=== PATIENT | female | born 1940 | race Caucasian/White ===

== ENCOUNTER 2017-10-13 17:52 | Observation (INO) ==
[2017-10-13] MEDS ORDERED: Ondansetron 4 MG/2 ML VIAL IVP ONE (18:17)
[2017-10-13] MEDS ORDERED: 0.9 % Sodium Chloride 1,000 ML IVC ONE ×2 (18:17→19:22)
[2017-10-13 19:00] LABS: Bilirubin,Urine Small (Negative); Blood,Urine Negative (Negative); Clarity,Urine Cloudy (Clear); Color,Urine Yellow (Yellow); Glucose,Urine (UA) Normal (Normal); Ketones,Urine Negative (Negative); Leukocyte Esterase,Urine Small (Negative); Nitrite,Urine Negative (Negative); PH,Urine 5.5 pH Units (5.0-8.0); Protein,Urine 30 mg/dL (Neg-Trace); Specific Gravity,Urine 1.025 (1.010-1.025); Urobilinogen,Urine Normal (Normal)
[2017-10-13 19:01] LABS: Bacteria,Urine Moderate per hpf (None-Few); Squamous Epithelial Cell,Urine Many per lpf (None-Few); WBC,Urine TNTC per hpf (0-3)
[2017-10-13 19:04] LABS: Basophils # 0.1 K/mcL (0.0-0.2); Basophils % 0.3 %; Eosinophils % 0.1 %; Hematocrit 38.6 % (35.3-44.9); Hemoglobin 11.2 g/dL (11.5-15.4); Immature Granulocytes % 0.4 % (0-4); Lymphocytes # 0.9 K/mcL (0.6-4.6); Lymphocytes % 6.5 %; Mean Corpuscular Hemoglobin 22.6 pg (28.0-33.3); Mean Platelet Volume 9.6 fL (9.4-12.4); Monocytes # 1.1 K/mcL (0.0-1.3); Monocytes % 7.5 %; Neutrophils # 12.3 K/mcL (1.6-8.9); Platelet Count 258 K/mcL (140-400); Red Blood Count 4.95 M/mcL (3.82-4.97); Segmented Neutrophils % 85.2 %
[2017-10-13 19:11] LABS: Prothrombin Time 11.2 Seconds (9.4-12.1)
[2017-10-13 19:13] LABS: Hyaline Casts,Urine Few per lpf (None-Few)
[2017-10-13 19:14] LABS: Activated Partial Thrombo Time 27.8 Seconds (26.0-36.0)
--- NOTE | 2017-10-13 19:17 | Emergency Department Note ---
Disposition Clinical Impression: Elevated troponin Atrial fibrillation Qualifiers: Atrial fibrillation type: unspecified Qualified Code(s): I48.91 - Unspecified atrial fibrillation Vomiting Qualifiers: Vomiting type: unspecified Vomiting Intractability: non-intractable Nausea presence: unspecified Qualified Code(s): R11.10 - Vomiting, unspecified Disposition: Admitted As Inpatient Condition: Fair Forms: ED Satisfaction Letter Time of Disposition: 20:34 Nausea/Vomiting/Diarrhea HPI - General Chief complaint: ED Nausea/Vomiting/Diarrhea Stated complaint: Vomiting Time Seen by Provider: 10/13/17 18:07 Source: patient Mode of arrival: ambulatory Limitations: no limitations Nursing Notes Reviewed: Yes Vital Signs Reviewed: Yes - History of Present Illness HPI Narrative: 77-year-old female presents to the emergency department complaining of vomiting. Patient does have history of triple bypass as well as a stent placed approximately 2 years ago. Patient says this came on all of a sudden. Signed chest pain or abdominal pain. Patient states that she has allergies having a fast heart rate. Says that she has been told she has a fast heart rate normally she is takes metoprolol and that we will lower in that she has fine. Patient is currently on Plavix. Patient states is been no falls no recent travel outside the country and no diarrhea. Patient says she did take her Lasix and feels like she has to urinate. Otherwise there is no complaints including no headaches, blurry vision, neck pain, back pain, chest pain, shortness of breath, abdominal pain, fevers, chills, changes in bowel movement, pain with urination, generalized weakness. She did mention that she is having mild burning while she peas. She could says that this could be causing her symptoms. - Related Data Home Medications Medication Instructions Recorded Confirmed Clopidogrel Bisulfate [Plavix] 75 mg PO DAILY MDD on hold 07/20/16 02/25/17 HYDROcodone/Acet 5/325 mg [[place] 1 tab PO TID 07/20/16 02/25/17 5-325 mg] Metoprolol [Lopressor] 100 mg PO BID 07/20/16 02/25/17 Atorvastatin Calcium [Lipitor] 80 mg PO HS 02/25/17 02/25/17 Levothyroxine [Synthroid] 250 mcg PO 0630 02/25/17 02/25/17 Nitroglycerin [Nitrostat] 0.4 mg SL Q5M PRN 02/25/17 02/25/17 Albuterol Sulfate [Ventolin Hfa] 2 puff IH Q4H PRN 10/13/17 10/13/17 Ferrous Sulfate 325 mg PO DAILY 10/13/17 10/13/17 Fluticasone Propionate Nasal 50 mcg NS DAILY PRN 10/13/17 10/13/17 [Flonase] Furosemide [Lasix] 20 mg PO DAILY 10/13/17 10/13/17 Loratadine [Claritin] 10 mg PO DAILY PRN 10/13/17 10/13/17 Losartan/Hydrochlorothiazide 1 each PO DAILY 10/13/17 10/13/17 [Hyzaar 100-12.5 Tablet] Omeprazole [PriLOSEC] 40 mg PO DAILY 10/13/17 10/13/17 Tiotropium [place] [Spiriva 2 spray IH DAILY 10/13/17 10/13/17 Respimat] clonazePAM [Klonopin] 0.5 mg PO TID 10/13/17 10/13/17 Allergies Allergy/AdvReac Type Severity Reaction Status Date / Time clarithromycin [From Biaxin] AdvReac Nausea Verified 03/06/17 08:59 Review of Systems: 10 point review of systems done and negative unless otherwise stated in the history of present illness. All systems ED: reviewed and negative except as stated. Review of Systems: As Per HPI Past Medical History - Past Medical History Attestation: Yes The following information was validated with the patient. Source: patient Medical history: Reports: COPD, coronary artery disease, GERD, hypertension, thyroid disease, other Surgical history: Reports: appendectomy, cholecystectomy, coronary bypass (CABG) , hip replacement Psychiatric history: Reports: no psych history - Social History Smoking Status: Never smoker Smokeless Tobacco Status: No Alcohol use: Reports: none Drug use: Reports: none Physical Exam - General Limitations: no limitations General appearance: alert, in no apparent distress - Head Head exam: atraumatic, normocephalic, normal inspection - Eye Eye exam: Present: normal appearance, PERRL, EOMI - ENT ENT exam: normal exam, normal oropharynx, mucous membranes moist - Neck Neck exam: Present: normal inspection, full ROM, trachea midline - Chest Chest inspection: Present: normal inspection, symmetric chest wall rise - Respiratory Respiratory exam: Present: normal lung sounds bilaterally - Cardiovascular Cardiovascular exam: Present: normal rhythm, tachycardia, normal heart sounds - Abdominal Exam Abdominal exam: Present: soft, Non-Tender. Absent: tenderness, distention, guarding, rebound, rigidity - Extremities Exam Extremities exam: Present: normal inspection, full ROM. Absent: tenderness, pedal edema - Expanded Lower Extremity Exam Neurovascular/Tendon exam: Absent: motor deficit, sensory deficit, tendon deficit - Back Exam Back exam: Present: normal inspection, full ROM. Absent: tenderness, CVA tenderness (R), CVA tenderness (L) - Neurological Exam Neurological exam: Present: alert, oriented X3 - Skin Skin exam: Present: warm, dry, intact, normal color Course Course Narrative: 77-year-old female presents to the emergency department complaining of vomiting. On exam she does have A. fib. Patient states this is new for her and this is new compared with old EKG. We will do a broad workup on this patient including CBC, BMP, lactate, lipase, urinalysis, EKG, chest x-ray. Will give patient 15 mg diltiazem push to help with her atrial fibrillation. Patient currently has no fever. No need for antipyretics. We will give patient IV fluids. Most likely disposition will be admission. - Reevaluation(s) Reevaluation #1: She reevaluated after diltiazem her heart rate went down to 90 Will get a repeat EKG patient has gotten one bag of IV fluids. Also given Zofran for nausea. This is helped the nausea. Patient is now a little more tachycardic so we will start the diltiazem drip. Patient also had an elevated troponin of 0.07 so we will give patient aspirin this could be due to demand ischemia's will hold off giving low-dose ACS heparin. We will also start Rocephin due to patient most likely having UTI. Time: 19:26 - Consultations Consultation #1: Spoke with on-call cardiology, Dr. Gill explained the case to him. Due to elevated troponin as well as EKG changes he recommended we do do low-dose heparin which was started on the patient. They had no further recommendations at this time. Vital Signs Temperature 97.5 F L 10/13/17 17:55 Pulse Rate 134 10/13/17 17:55 Respiratory Rate 20 10/13/17 17:55 Blood Pressure 169/87 10/13/17 17:55 O2 Sat by Pulse Oximetry 98 10/13/17 17:55 Temperature 97.5 F L 10/13/17 17:55 Pulse Rate 93 10/13/17 20:13 Respiratory Rate 20 10/13/17 20:13 Blood Pressure 187/111 10/13/17 20:13 O2 Sat by Pulse Oximetry 98 10/13/17 17:55 Oxygen Delivery Oxygen Delivery Room Air Nausea/Vomiting/Diarrhea - [facility] Narrative Medical decision making narrative: 77-year-old female presents to the emergency department with vomiting. Did give her Zofran as well as IV fluids for that. To get chest x-ray which came back normal. Labs came back with an elevated troponin of 0.07. Due to her cardiac history as well as EKG changes having ST depression we started low-dose heparin. This was done with consult with cardiology where spoke with Dr. Gill. Patient also had urinary tract infection and started Rocephin on her. When she was in this new onset A. fib we did give 15 mg bolus of diltiazem. Impression responded well with that back to sinus. Repeat EKG was done. We decided to start a diltiazem drip due to patient still being tachycardic. Patient tolerated all this well. Bit due to the new onset atrial fibrillation we decided to admit the patient for further evaluation. Patient is admitted to Dr. Wilkinson the hospitalist who agreed to accept the patient. Patient is admitted in stable condition. Chest X-Ray 10/13/17 18:21 IMPRESSION: Low lung volume study without definite acute consolidation. Suggestive of a large hiatal hernia. Calcified granulomas. D/ / 10/13/2017 18:44:48 Ke aTte MD / bcarter Interpreting Provider: Ke Tate MD - Medical Records Medical records reviewed: Yes I reviewed the patient's medical records. - Lab Data Lab results reviewed: Yes I reviewed the patient's lab results. Result diagrams: 10/13/17 18:49 10/13/17 18:49 Lab Results 10/13/17 10/13/17 10/13/17 Range/Units 18:40 18:49 18:49 WBC 14.5 H (4.3-11.1) K/mcL RBC 4.95 (3.82-4.97) M/mcL Hgb 11.2 L (11.5-15.4) g/dL Hct 38.6 (35.3-44.9) % MCV 78.0 L (83.0-100.0) fL MCH 22.6 L (28.0-33.3) pg MCHC 29.0 L (31.6-35.5) g/dL RDW 20.0 H (11.5-14.5) % Plt Count 258 (140-400) K/mcL MPV 9.6 (9.4-12.4) fL Immature Gran % 0.4 (0-4) % Seg Neutrophils % 85.2 % Lymphocytes % 6.5 % Monocytes % 7.5 % Eosinophils % 0.1 % Basophils % 0.3 % Neutrophils # 12.3 H (1.6-8.9) K/mcL Lymphocytes # 0.9 (0.6-4.6) K/mcL Monocytes # 1.1 (0.0-1.3) K/mcL Eosinophils # 0.0 (0.0-0.6) K/mcL Basophils # 0.1 (0.0-0.2) K/mcL PT (9.4-12.1) Seconds INR APTT (26.0-36.0) Seconds Sodium 136 (136-145) mEq/L Potassium 3.2 L (3.5-5.1) mEq/L Chloride 102 (98-107) mEq/L Carbon Dioxide 25 (23-29) mEq/L BUN 17 (8-23) mg/dL Creatinine 0.76 (0.60-1.20) mg/dL Est GFR ( Amer) > 60 (> 60) Est GFR (Non-Af Amer) > 60 (> 60) BUN/Creatinine Ratio 22 (6-26) Glucose 129 H (70-105) mg/dL Calculated Osmolality 285 (280-300) Lactic Acid (0.5-2.2) mmol/L Calcium 9.3 (8.6-10.3) mg/dL Total Bilirubin 0.4 (0.3-1.0) mg/dL AST 18 (13-39) Units/L ALT 9 (7-52) Units/L Alkaline Phosphatase 60 (34-104) Units/L Troponin I (< 0.04) ng/mL Serum Total Protein 7.4 (6.4-8.9) g/dL Albumin 4.3 (3.5-5.7) g/dL Globulin 3.1 (2.4-3.5) g/dL Albumin/Globulin Ratio 1.4 (1.1-2.2) Lipase 50 (11-82) Units/L Urine Color Yellow (Yellow) Urine Clarity Cloudy A (Clear) Urine pH 5.5 (5.0-8.0) pH Units Ur Specific [place] 1.025 (1.010-1.025) Urine Protein 30 H (Neg-Trace) mg/dL Urine Glucose (UA) Normal (Normal) mg/dL Urine Ketones Negative (Negative) mg/dL Urine Blood Negative (Negative) Urine Nitrite Negative (Negative) Urine Bilirubin Small H (Negative) Urine Urobilinogen Normal (Normal) mg/dL Ur Leukocyte Esterase Small H (Negative) Urine Microscopic RBC 3-5 H (0-3) per hpf Urine Microscopic WBC TNTC H (0-3) per hpf Ur Squamous Epith Cells Many H (None-Few) per lpf Urine Bacteria Moderate H (None-Few) per hpf Hyaline Casts Few (None-Few) per lpf Ur Culture Indicated? NO. (NO) 10/13/17 10/13/17 10/13/17 Range/Units 18:49 18:49 18:49 WBC (4.3-11.1) K/mcL RBC (3.82-4.97) M/mcL Hgb (11.5-15.4) g/dL Hct (35.3-44.9) % MCV (83.0-100.0) fL MCH (28.0-33.3) pg MCHC (31.6-35.5) g/dL RDW (11.5-14.5) % Plt Count (140-400) K/mcL MPV (9.4-12.4) fL Immature Gran % (0-4) % Seg Neutrophils % % Lymphocytes % % Monocytes % % Eosinophils % % Basophils % % Neutrophils # (1.6-8.9) K/mcL Lymphocytes # (0.6-4.6) K/mcL Monocytes # (0.0-1.3) K/mcL Eosinophils # (0.0-0.6) K/mcL Basophils # (0.0-0.2) K/mcL PT 11.2 (9.4-12.1) Seconds INR 1.0 APTT 27.8 (26.0-36.0) Seconds Sodium (136-145) mEq/L Potassium (3.5-5.1) mEq/L Chloride (98-107) mEq/L Carbon Dioxide (23-29) mEq/L BUN (8-23) mg/dL Creatinine (0.60-1.20) mg/dL Est GFR ( Amer) (> 60) Est GFR (Non-Af Amer) (> 60) BUN/Creatinine Ratio (6-26) Glucose (70-105) mg/dL Calculated Osmolality (280-300) Lactic Acid 2.1 (0.5-2.2) mmol/L Calcium (8.6-10.3) mg/dL Total Bilirubin (0.3-1.0) mg/dL AST (13-39) Units/L ALT (7-52) Units/L Alkaline Phosphatase (34-104) Units/L Troponin I 0.07 H* (< 0.04) ng/mL Serum Total Protein (6.4-8.9) g/dL Albumin (3.5-5.7) g/dL Globulin (2.4-3.5) g/dL Albumin/Globulin Ratio (1.1-2.2) Lipase (11-82) Units/L Urine Color (Yellow) Urine Clarity (Clear) Urine pH (5.0-8.0) pH Units Ur Specific [place] (1.010-1.025) Urine Protein (Neg-Trace) mg/dL Urine Glucose (UA) (Normal) mg/dL Urine Ketones (Negative) mg/dL Urine Blood (Negative) Urine Nitrite (Negative) Urine Bilirubin (Negative) Urine Urobilinogen (Normal) mg/dL Ur Leukocyte Esterase (Negative) Urine Microscopic RBC (0-3) per hpf Urine Microscopic WBC (0-3) per hpf Ur Squamous Epith Cells (None-Few) per lpf Urine Bacteria (None-Few) per hpf Hyaline Casts (None-Few) per lpf Ur Culture Indicated? (NO) - Radiology Data Radiology results reviewed: Yes I reviewed the patient's radiology results. - EKG Data EKG attestation: Yes I reviewed and interpreted this EKG. EKG results narrative: EKG #1 done at 1800 reviewed by myself and the attending showing A. fib with RVR with a right bundle branch at a rate of 140, QRS 129, QTC 414 with a leftward axis. There is ST depression in leads V1 and V2 and V3 and V4. No other acute T-wave abnormalities nor signs of ischemia. No signs of heart strain hypertrophy or heart block. This has been reviewed and besides forgot her syndrome. Compared with old EKG done 02/25/17 shows no atrial fibrillation but does show a right bundle-branch block. There is no ST depression in that EKG as well. EKG #2 done at 1935 after diltiazem bolus. Shows sinus rhythm with first- degree AV block at a rate of 99, DE interval 238, QRS 133, QTC 424 with a leftward axis. There is still a right bundle branch block there still ST depression in V1 and V2. No signs of heart strain hypertrophy or other heart blocks.
[2017-10-13 19:22] LABS: Alanine Aminotransferase 9 Units/L (7-52); Albumin 4.3 g/dL (3.5-5.7); Albumin/Globulin Ratio 1.4 (1.1-2.2); Alkaline Phosphatase 60 Units/L (34-104); Aspartate Amino Transferase 18 Units/L (13-39); BUN/Creatinine Ratio 22 (6-26); Bilirubin,Total 0.4 mg/dL (0.3-1.0); Blood Urea Nitrogen 17 mg/dL (8-23); Calcium 9.3 mg/dL (8.6-10.3); Carbon Dioxide 25 mEq/L (23-29); Chloride 102 mEq/L (98-107); Globulin 3.1 g/dL (2.4-3.5); Glucose 129 mg/dL (70-105); Lipase 50 Units/L (11-82); Osmolality,Calculated 285 (280-300); Potassium 3.2 mEq/L (3.5-5.1); Sodium 136 mEq/L (136-145); Total Protein 7.4 g/dL (6.4-8.9); eGFR For African Americans > 60 (> 60); eGFR For Non-African Americans > 60 (> 60)
[2017-10-13] MEDS ORDERED: Aspirin 81 MG TAB.CHEW PO ONE (19:24)
--- NOTE | 2017-10-13 19:25 | Emergency Department Note ---
START Narrative - START START: I examined this patient and my medical decision-making was reviewed with the Resident Physician. I agree with the documented findings, disposition and treatment plan as described except to the extent set forth below. 77 year old female wiht complaints of nausea and vomtiting and bruning on urination and states taht this feels simlir to her UTIS in the past but she is also in new onset atrial fibrillation with rate of 140s and has a histroyf of triple vesself CABG. Ua confirims UTI and we have given cardizem push dose and has demetra down to 90s and hold on the drip. PAtient is fluid repsonive as well and has been treated with Rocephin. troponin is positive and we will treat with ASA. admit to medicine
[2017-10-13] MEDS ORDERED: *HR* Heparin 5,000 UNIT/ML VIAL IVP ONE (20:03)
[2017-10-13] MEDS ORDERED: Heparin 25,000 UNIT/500 ML D5W 25,000 UNIT/500 ML BAG IVC SCH (20:15)
[2017-10-13] MEDS ORDERED: *HR* Heparin 5,000 UNIT/ML VIAL IVP PRN ×2 (21:46)
[2017-10-13] MEDS ORDERED: Naloxone 0.4 MG/ML INJ IVP PRN (23:47)
[2017-10-13] MEDS ORDERED: Ondansetron 4 MG/2 ML VIAL IVP PRN (23:50)
[2017-10-13] MEDS ORDERED: Loratadine 10 MG TABLET PO PRN (23:51)
[2017-10-13] MEDS ORDERED: Fluticasone Propionate Nasal 50 MCG/SPRAY BOTTLE NS PRN (23:51)
[2017-10-13] MEDS ORDERED: Nitroglycerin 0.4 MG TAB.SUBL SL PRN (23:51)
[2017-10-13] MEDS ORDERED: *HR* HYDROcodone/Acet 5/325 mg TABLET PO PRN (23:51)
--- NOTE | 2017-10-14 00:25 | Internal Med History&Physical ---
Date of Encounter: 10/13/17 Time of Encounter: 23:00 Assessment and Plan (1) Atrial fibrillation with RVR Current visit: Yes Status: Acute Pt has no hx of A Fib. - Start cardizem drip. HR convert to NSR now. - Cont heparin drip for AC - Echo, Mg, TSH - Cardio consult (2) Leukocytosis Current visit: Yes Status: Acute Most likely reactive, f/u CBC in AM Qualifiers: Leukocytosis type: leukemoid reaction Qualified Code(s): D72.823 - Leukemoid reaction (3) Elevated troponin Current visit: Yes Status: Acute Most likely demand ischemia due to A Fib RVR, will cont cardiac monitoring and track 3 sets of troponin (4) DVT prophylaxis Current visit: No Status: Acute On heparin drip (5) CAD (coronary artery disease) Current visit: No Status: Chronic No chest pain. Cont home meds Qualifiers: Coronary Disease-Associated Artery/Lesion type: [place] artery [place] vs. transplanted heart: [place] heart Associated angina: angina presence unspecified Qualified Code(s): I25.10 - Atherosclerotic heart disease of [place] coronary artery without angina pectoris (6) HTN (hypertension) Current visit: No Status: Chronic Cont home meds. Monitor BP Qualifiers: Hypertension type: essential hypertension Qualified Code(s): I10 - Essential (primary) hypertension (7) Hypothyroid Current visit: No Status: Chronic Cont home meds Qualifiers: Hypothyroidism type: unspecified Qualified Code(s): E03.9 - Hypothyroidism , unspecified Internal Medicine - H&P: HPI Chief complaint: nausea and vomiting Admitted From: Home Plans for Post Hospital Care: Home History of present illness: Ms. Edgar is a 77 year old female with hx of CAD s/p CABG, PVD, HTN, Hiatal hernia, present to ER for nausea and vomiting started from today. Pt said vomiting is stomach content, no blood in it. Pt denies abd pain or diarrhea. She denies chest pain or SOB. In ER, EKG shows A Fib RVR. Pt has no hx of A Fib. She was given cardizem 15mg iv once plus cardizem drip. Her HR convert to sinus and nausea vomiting also resolved. Pt was started heparin drip and admitted for further management. Past Med Surg Social Fam HX - Past Medical History Medical history: COPD, coronary artery disease, GERD, hypertension, thyroid disease, other Psychiatric history: no psych history - Past Surgical History Surgical History: appendectomy, cholecystectomy, coronary bypass (CABG), hip replacement - Social History Smoking Status: Never smoker Smokeless Tobacco Status: No Alcohol use: none Drug use: none - Family History Mother Hx Family Cardiac Disorders: Yes Father Hx Family Neurologic Disorders: Yes (parkinson) Internal Medicine - H&P: Meds Clopidogrel Bisulfate [Plavix] 75 mg PO DAILY 07/20/16 [History] HYDROcodone/Acet 5/325 mg [[place] 5-325 mg] 1 tab PO TID PRN 07/20/16 [History] Metoprolol [Lopressor] 100 mg PO BID 07/20/16 [History] Atorvastatin Calcium [Lipitor] 80 mg PO HS 02/25/17 [History] Levothyroxine [Synthroid] 250 mcg PO 0630 02/25/17 [History] Nitroglycerin [Nitrostat] 0.4 mg SL Q5M PRN 02/25/17 [History] Albuterol Sulfate [Ventolin Hfa] 2 puff IH Q4H PRN 10/13/17 [History] Ferrous Sulfate 325 mg PO DAILY 10/13/17 [History] Fluticasone Propionate Nasal [Flonase] 50 mcg NS DAILY PRN 10/13/17 [History] Furosemide [Lasix] 20 mg PO DAILY 10/13/17 [History] Loratadine [Claritin] 10 mg PO DAILY PRN 10/13/17 [History] Losartan/Hydrochlorothiazide [Hyzaar 100-12.5 Tablet] 1 each PO DAILY 10/13/17 [ History] Omeprazole [PriLOSEC] 40 mg PO DAILY 10/13/17 [History] Tiotropium [place] [Spiriva Respimat] 2 spray IH DAILY 10/13/17 [History] clonazePAM [Klonopin] 0.5 mg PO TID 10/13/17 [History] 3 Allergy/AdvReac Type Severity Reaction Status Date / Time clarithromycin [From Biaxin] AdvReac Nausea Verified 03/06/17 08:59 All Systems PM: A 10-system review of systems was performed and is negative for pertinent findings except as documented above in the HPI. - Constitutional Vitals: Temp Pulse Resp BP Pulse Ox 97.6 F 94 17 129/86 93 10/13/17 23:53 10/13/17 23:53 10/13/17 23:53 10/13/17 23:53 10/13/17 23:53 General appearance: Present: A&O X 3, no acute distress, answers questions appropriately - Head Head exam: Present: atraumatic, normocephalic - Eye Eye exam: Present: PERRL, conjuntiva pink, sclera anicteric Pupils: Present: PERRL - Neck Neck exam general surgery: Present: supple, trachea midline. Absent: lymphadenopathy - Respiratory Respiratory exam: Present: CTAB. Absent: accessory muscle use, rales, rhonchi, wheezes - Cardiovascular Cardiovascular exam: Present: RRR, +S1, +S2. Absent: diastolic murmur, gallop, rubs, systolic murmur - GI/Abdominal GI/Abdominal exam: Present: normal bowel sounds, soft, no peritoneal signs. Absent: distended, tenderness - Extremities Exam Extremities exam: Present: warm, radial pulses palpable and symmetrical. Absent : calf tenderness, cyanotic, pedal edema - Neurological Exam Neurological exam: Present: CN II-XII intact, oriented X3, no focal deficits. Absent: pronater drift, facial droop, speech deficit - Skin Skin exam: Present: dry, intact Internal Med - H&P Results - Labs CBC & Chem 7: 10/13/17 18:49 10/13/17 18:49 - EKG Data -: EKG Interpreted by Myself (I degree AVB, RBBB) EKG shows normal: sinus rhythm Rate: normal
[2017-10-14 03:30] LABS: Basophils % 0.7 %; Eosinophils % 0.4 %; Hematocrit 31.2 % (35.3-44.9); Immature Granulocytes % 0.2 % (0-4); Lymphocytes % 17.8 %; Mean Corpuscular HGB Conc 29.5 g/dL (31.6-35.5); Mean Corpuscular Hemoglobin 22.8 pg (28.0-33.3); Mean Corpuscular Volume 77.4 fL (83.0-100.0); Mean Platelet Volume 9.7 fL (9.4-12.4); Monocytes # 0.5 K/mcL (0.0-1.3); Monocytes % 9.3 %; Neutrophils # 4.1 K/mcL (1.6-8.9); Platelet Count 194 K/mcL (140-400); Red Blood Count 4.03 M/mcL (3.82-4.97); Red Cell Distribution Width 19.5 % (11.5-14.5); Segmented Neutrophils % 71.6 %
[2017-10-14 03:34] LABS: Hemoglobin 9.2 g/dL (11.5-15.4)
[2017-10-14 04:01] LABS: Thyroid Stimulating Hormone 1.341 mcIU/mL (0.340-5.600)
[2017-10-14 04:06] LABS: Activated Partial Thrombo Time 130.5 Seconds (26.0-36.0)
[2017-10-14] MEDS: Heparin 25,000 UNIT/500 ML D5W 25,000 UNIT/500 ML BAG IVC SCH (04:08)
[2017-10-14 04:09] LABS: Heparin anti-factor XA UFH 0.84 IU/mL (0.30-0.70)
[2017-10-14 04:18] LABS: BUN/Creatinine Ratio 23 (6-26); Blood Urea Nitrogen 14 mg/dL (8-23); Calcium 8.4 mg/dL (8.6-10.3); Carbon Dioxide 26 mEq/L (23-29); Chloride 106 mEq/L (98-107); Glucose 108 mg/dL (70-105); Osmolality,Calculated 289 (280-300); Potassium 3.6 mEq/L (3.5-5.1); Sodium 139 mEq/L (136-145); eGFR For African Americans > 60 (> 60); eGFR For Non-African Americans > 60 (> 60)
[2017-10-14 05:00] LABS: Magnesium 1.6 mg/dL (1.6-2.6)
[2017-10-14] MEDS: Furosemide 20 MG TABLET PO SCH (10:14)
[2017-10-14] MEDS: clonazePAM 0.5 MG TABLET PO SCH ×3 (10:14→20:25)
[2017-10-14] MEDS: Metoprolol 100 MG TABLET PO SCH ×2 (10:14→20:25)
[2017-10-14] MEDS: hydroCHLOROthiazide 25 MG TABLET PO SCH (10:15)
[2017-10-14] MEDS: Tiotropium 18 MCG inhalation IH SCH (10:36)
--- NOTE | 2017-10-14 13:46 | Electrophysiology Consult Note ---
Date of Encounter: 10/14/17 Time of Encounter: 13:42 Assessment and Plan (1) Atrial fibrillation with RVR Current Visit: Yes Status: Acute AF with RVR, likely secondary to viral illness. Would recommend IV cardizem for rate control and converting to oral as she is now in NSR. Is currently on heparin drip, will need to be started on po anticoagulant on discharge. Discussion w patient/family: The assessment and plan as outlined above was discussed with the patient and/or family members who expressed understanding and agreement. All questions were answered. Thank you for involving us in the care of your patient. Please call with any questions. History of Present Illness Consult date: 10/14/17 Requesting physician: Dallin Church Consult reason: AF, RVR Chief complaint: N/V, plapitaions History of present illness: Ms. Edgar is a 77 year old female whith history of CAD presents with nausea and vomiting and was noted to be in AF. She does not have a history of AF. Past Med Surg Social Fam HX - Past Medical History Medical history: COPD, coronary artery disease, GERD, hypertension, thyroid disease, other Psychiatric history: no psych history - Past Surgical History Surgical History: appendectomy, cholecystectomy, coronary bypass (CABG), hip replacement - Social History Smoking Status: Never smoker Smokeless Tobacco Status: No Alcohol use: none Drug use: none - Family History Mother Hx Family Cardiac Disorders: Yes Father Hx Family Neurologic Disorders: Yes (parkinson) Medications and Allergies Clopidogrel Bisulfate [Plavix] 75 mg PO DAILY 07/20/16 [History] HYDROcodone/Acet 5/325 mg [[place] 5-325 mg] 1 tab PO TID PRN 07/20/16 [History] Metoprolol [Lopressor] 100 mg PO BID 07/20/16 [History] Atorvastatin Calcium [Lipitor] 80 mg PO HS 02/25/17 [History] Levothyroxine [Synthroid] 250 mcg PO 0630 02/25/17 [History] Nitroglycerin [Nitrostat] 0.4 mg SL Q5M PRN 02/25/17 [History] Albuterol Sulfate [Ventolin Hfa] 2 puff IH Q4H PRN 10/13/17 [History] Ferrous Sulfate 325 mg PO DAILY 10/13/17 [History] Fluticasone Propionate Nasal [Flonase] 50 mcg NS DAILY PRN 10/13/17 [History] Furosemide [Lasix] 20 mg PO DAILY 10/13/17 [History] Loratadine [Claritin] 10 mg PO DAILY PRN 10/13/17 [History] Losartan/Hydrochlorothiazide [Hyzaar 100-12.5 Tablet] 1 each PO DAILY 10/13/17 [ History] Omeprazole [PriLOSEC] 40 mg PO DAILY 10/13/17 [History] Tiotropium [place] [Spiriva Respimat] 2 spray IH DAILY 10/13/17 [History] clonazePAM [Klonopin] 0.5 mg PO TID 10/13/17 [History] 3 Allergy/AdvReac Type Severity Reaction Status Date / Time clarithromycin [From Biaxin] AdvReac Nausea Verified 03/06/17 08:59 All Systems Review: A 10-system review of systems was performed and is negative for pertinent findings except as documented above in the HPI. Physical Examination Vital Signs, Last 4 Hours Temp Pulse Resp BP Pulse Ox 10/14/17 10:26 98.0 F 95 14 140/65 94 General: Conversant, No Apparent Distress HEENT: Atraumatic, Normocephaly, Mucus Membranes Moist Neck: No JVD, Normal carotid pulses Cardiac: Reg Rate and Rhythm, Normal S1 and S2, No Murmur Lungs: Normal Breath Sounds, No Wheeze, Rales, Rhonchi Neuro: Alert and responsive, No focal deficits noted Abdomen: Soft, Non-Tender Skin: No rashes noted on visualized skin Musculoskeletal: No Chest Wall Tenderness Results 10/14/17 03:24 10/14/17 03:24 Lab Results 10/14/17 10/14/17 10/14/17 00:35 03:24 03:24 WBC 5.7 D Hgb 9.2 L D Hct 31.2 L Plt Count 194 APTT Sodium Potassium Chloride Carbon Dioxide BUN Creatinine Glucose Calcium Magnesium 1.6 Troponin I 0.11 H* TSH 1.341 10/14/17 10/14/17 10/14/17 03:24 03:24 07:01 WBC Hgb Hct Plt Count APTT 130.5 H* D Sodium 139 Potassium 3.6 Chloride 106 Carbon Dioxide 26 BUN 14 Creatinine 0.61 Glucose 108 H Calcium 8.4 L Magnesium Troponin I 0.08 H* TSH 10/14/17 11:21 WBC Hgb Hct Plt Count APTT 66.8 H Sodium Potassium Chloride Carbon Dioxide BUN Creatinine Glucose Calcium Magnesium Troponin I TSH - EKG Interpretation EKG results cardiology: personally reviewed (AF with RVR, RBBB) Consult Discharge Plan - Plan Referrals: Joshua Bateman MD [Primary Care Provider] -
--- NOTE | 2017-10-14 16:19 | Event Note ---
Date of Encounter: 10/14/17 Time of Encounter: 16:18 77/female Brief past medical history: Hypertension, hyperlipidemia, coronary artery disease, status post coronary artery bypass graft, Admitted with worsening vomiting likely secondary to viral illness. Noted that patient is in atrial fibrillation with a rapid ventricular rate. She is presently on Cardizem drip and this is a new onset A. fib hence from anticoagulant point of view she is receiving heparin. Elevated troponin is likely secondary to the demand ischemia. Cardiology is on the board and we will follow the recommendation.
[2017-10-15] MEDS: Heparin 25,000 UNIT/500 ML D5W 25,000 UNIT/500 ML BAG IVC SCH (02:59)
[2017-10-15 06:16] LABS: Basophils # 0.1 K/mcL (0.0-0.2); Basophils % 1.2 %; Eosinophils # 0.1 K/mcL (0.0-0.6); Eosinophils % 1.2 %; Hemoglobin 9.1 g/dL (11.5-15.4); Immature Granulocytes % 0.4 % (0-4); Lymphocytes # 1.4 K/mcL (0.6-4.6); Lymphocytes % 27.5 %; Mean Corpuscular HGB Conc 29.4 g/dL (31.6-35.5); Mean Corpuscular Hemoglobin 22.6 pg (28.0-33.3); Mean Corpuscular Volume 76.9 fL (83.0-100.0); Mean Platelet Volume 10.5 fL (9.4-12.4); Monocytes # 0.7 K/mcL (0.0-1.3); Monocytes % 12.6 %; Platelet Count 224 K/mcL (140-400); Red Blood Count 4.03 M/mcL (3.82-4.97); Red Cell Distribution Width 19.9 % (11.5-14.5); Segmented Neutrophils % 57.1 %
[2017-10-15 06:31] LABS: Alanine Aminotransferase 7 Units/L (7-52); Albumin 3.5 g/dL (3.5-5.7); Albumin/Globulin Ratio 1.4 (1.1-2.2); Alkaline Phosphatase 48 Units/L (34-104); Aspartate Amino Transferase 18 Units/L (13-39); BUN/Creatinine Ratio 14 (6-26); Bilirubin,Total 0.4 mg/dL (0.3-1.0); Blood Urea Nitrogen 11 mg/dL (8-23); Calcium 8.9 mg/dL (8.6-10.3); Carbon Dioxide 29 mEq/L (23-29); Chloride 103 mEq/L (98-107); Globulin 2.5 g/dL (2.4-3.5); Glucose 101 mg/dL (70-105); Osmolality,Calculated 290 (280-300); Sodium 140 mEq/L (136-145); eGFR For African Americans > 60 (> 60); eGFR For Non-African Americans > 60 (> 60)
[2017-10-15] MEDS: Tiotropium 18 MCG inhalation IH SCH (07:48)
[2017-10-15] MEDS: Diltiazem CD (24hr) 120 MG CAPSULE PO SCH (08:29)
[2017-10-15] MEDS: clonazePAM 0.5 MG TABLET PO SCH ×3 (08:29→20:13)
[2017-10-15] MEDS: hydroCHLOROthiazide 25 MG TABLET PO SCH (08:30)
[2017-10-15] MEDS: Furosemide 20 MG TABLET PO SCH (08:30)
[2017-10-15] MEDS: Metoprolol 100 MG TABLET PO SCH ×2 (08:30→20:13)
--- NOTE | 2017-10-15 16:07 | Internal Med Progress Note ---
Date of Encounter: 10/15/17 Time of Encounter: 16:03 - Assessment and plan (1) Atrial fibrillation with RVR Current Visit: Yes Status: Acute Assessment and plan: Patient admitted with atrial fibrillation with rapid ventricular rate. Presently heart rate is very well controlled. Ventricle are rate is between 90-110. Echocardiogram: 10/2017: EF 55%, mild left ventricular diastolic dysfunction, no major valvular abnormalities. Rate control: Cardizem extended release 120 mg daily, metoprolol 100 mg twice a day. Anticoagulation: Heparin drip. (2) Elevated troponin Current Visit: Yes Status: Acute Assessment and plan: Likely demand ischemia (3) Barretts esophagus Current Visit: No Status: Acute Assessment and plan: Patient has a history of a Head's esophagus. EGD: 07/2016: Barretts esophagus. Patient was hospitalized for history of a GI bleed in a month of July 2016. Patient underwent colonoscopy which revealed hyperplastic polyp. We need to discuss with patient at length regarding anticoagulation. Qualifiers: Head's esophagus type: with dysplasia of unspecified degree Qualified Code(s): K22.719 - Head's esophagus with dysplasia, unspecified; K22.71 - Head's esophagus with dysplasia (4) HTN (hypertension) Current Visit: No Status: Chronic Assessment and plan: Resume home medication Qualifiers: Hypertension type: essential hypertension Qualified Code(s): I10 - Essential (primary) hypertension - Subjective Interval history: Patient seen and examined. Chart reviewed. Patient is comfortably lying in the bed. Patient denies any palpitation, nausea, vomiting, abdominal pain, - Constitutional Vitals: Temp Pulse Resp BP Pulse Ox 98.3 F 70 14 137/120 93 10/15/17 15:35 10/15/17 15:35 10/15/17 15:35 10/15/17 15:35 10/15/17 15:35 General appearance: Present: A&O X 3, no acute distress, answers questions appropriately - Head Head exam: Present: atraumatic, normocephalic - Eye Eye exam: Present: PERRL, conjuntiva pink, sclera anicteric Pupils: Present: PERRL - Neck Neck exam general surgery: Present: supple, trachea midline. Absent: lymphadenopathy - Respiratory Respiratory exam: Present: CTAB. Absent: accessory muscle use, rales, rhonchi, wheezes - Cardiovascular Cardiovascular exam: Present: RRR, +S1, +S2. Absent: diastolic murmur, gallop, rubs, systolic murmur - GI/Abdominal GI/Abdominal exam: Present: normal bowel sounds, soft, no peritoneal signs. Absent: distended, tenderness - Extremities Exam Extremities exam: Present: warm, radial pulses palpable and symmetrical. Absent : calf tenderness, cyanotic, pedal edema - Neurological Exam Neurological exam: Present: CN II-XII intact, oriented X3, no focal deficits. Absent: pronater drift, facial droop, speech deficit - Skin Skin exam: Present: dry, intact Internal Medicine: Result - Labs CBC & Chem 7: 10/15/17 05:11 10/15/17 05:11 Labs: Short CBC 10/15/17 Range/Units 05:11 WBC 5.2 (4.3-11.1) K/mcL Hgb 9.1 L (11.5-15.4) g/dL Hct 31.0 L (35.3-44.9) % Plt Count 224 (140-400) K/mcL Neutrophils # 3.0 (1.6-8.9) K/mcL BMP 10/15/17 05:11 Sodium 140 Potassium 4.0 Chloride 103 Carbon Dioxide 29 BUN 11 Creatinine 0.78 Glucose 101 Calcium 8.9 Liver Function 10/15/17 Range/Units 05:11 Total Bilirubin 0.4 (0.3-1.0) mg/dL AST 18 (13-39) Units/L ALT 7 (7-52) Units/L Alkaline Phosphatase 48 (34-104) Units/L Albumin 3.5 (3.5-5.7) g/dL - ABG Interpretation ABG results: PT/INR, D-dimer PT 11.2 Seconds (9.4-12.1) 10/13/17 18:49 Consult Discharge Plan - Plan Referrals: Joshua Bateman MD [Primary Care Provider] -
[2017-10-16 03:55] LABS: Basophils # 0.1 K/mcL (0.0-0.2); Basophils % 0.9 %; Eosinophils # 0.1 K/mcL (0.0-0.6); Eosinophils % 1.2 %; Hematocrit 31.9 % (35.3-44.9); Hemoglobin 9.4 g/dL (11.5-15.4); Immature Granulocytes % 0.4 % (0-4); Lymphocytes # 1.3 K/mcL (0.6-4.6); Lymphocytes % 22.8 %; Mean Corpuscular HGB Conc 29.5 g/dL (31.6-35.5); Mean Corpuscular Hemoglobin 22.8 pg (28.0-33.3); Mean Corpuscular Volume 77.2 fL (83.0-100.0); Monocytes # 0.7 K/mcL (0.0-1.3); Monocytes % 12.3 %; Neutrophils # 3.5 K/mcL (1.6-8.9); Platelet Count 230 K/mcL (140-400); Red Blood Count 4.13 M/mcL (3.82-4.97); Red Cell Distribution Width 19.8 % (11.5-14.5); Segmented Neutrophils % 62.4 %
[2017-10-16 04:23] LABS: Alanine Aminotransferase 7 Units/L (7-52); Albumin 3.5 g/dL (3.5-5.7); Albumin/Globulin Ratio 1.4 (1.1-2.2); Alkaline Phosphatase 51 Units/L (34-104); Aspartate Amino Transferase 18 Units/L (13-39); BUN/Creatinine Ratio 14 (6-26); Bilirubin,Total 0.3 mg/dL (0.3-1.0); Blood Urea Nitrogen 12 mg/dL (8-23); Calcium 8.9 mg/dL (8.6-10.3); Carbon Dioxide 31 mEq/L (23-29); Chloride 98 mEq/L (98-107); Globulin 2.5 g/dL (2.4-3.5); Glucose 108 mg/dL (70-105); Osmolality,Calculated 280 (280-300); Potassium 3.4 mEq/L (3.5-5.1); Sodium 135 mEq/L (136-145); eGFR For African Americans > 60 (> 60); eGFR For Non-African Americans > 60 (> 60)
[2017-10-16 07:31] VITALS: BP 138/72
[2017-10-16] MEDS: Tiotropium 18 MCG inhalation IH SCH (08:21)
--- NOTE | 2017-10-16 10:31 | Discharge Summary ---
Date of Encounter: 10/16/17 Time of Encounter: 10:28 - Discharge Diagnosis (1) Atrial fibrillation with RVR Priority: Primary Status: Acute (2) Elevated troponin Priority: Primary Status: Acute (3) Barretts esophagus Priority: Secondary Status: Acute Qualifiers: Head's esophagus type: with dysplasia of unspecified degree Qualified Code(s): K22.719 - Head's esophagus with dysplasia, unspecified; K22.71 - Head's esophagus with dysplasia (4) HTN (hypertension) Priority: Secondary Status: Chronic Qualifiers: Hypertension type: essential hypertension Qualified Code(s): I10 - Essential (primary) hypertension - Discharge Medications Prescriptions: Diltiazem CD (24hr) [Cardizem CD] 120 mg PO DAILY #30 cap.er.24h Home Medications: Clopidogrel Bisulfate [Plavix] 75 mg PO DAILY 07/20/16 [History] HYDROcodone/Acet 5/325 mg [[place] 5-325 mg] 1 tab PO TID PRN 07/20/16 [History] Metoprolol [Lopressor] 100 mg PO BID 07/20/16 [History] Atorvastatin Calcium [Lipitor] 80 mg PO HS 02/25/17 [History] Levothyroxine [Synthroid] 250 mcg PO 0630 02/25/17 [History] Nitroglycerin [Nitrostat] 0.4 mg SL Q5M PRN 02/25/17 [History] Albuterol Sulfate [Ventolin Hfa] 2 puff IH Q4H PRN 10/13/17 [History] Ferrous Sulfate 325 mg PO DAILY 10/13/17 [History] Fluticasone Propionate Nasal [Flonase] 50 mcg NS DAILY PRN 10/13/17 [History] Furosemide [Lasix] 20 mg PO DAILY 10/13/17 [History] Loratadine [Claritin] 10 mg PO DAILY PRN 10/13/17 [History] Losartan/Hydrochlorothiazide [Hyzaar 100-12.5 Tablet] 1 each PO DAILY 10/13/17 [ History] Omeprazole [PriLOSEC] 40 mg PO DAILY 10/13/17 [History] Tiotropium [place] [Spiriva Respimat] 2 spray IH DAILY 10/13/17 [History] clonazePAM [Klonopin] 0.5 mg PO TID 10/13/17 [History] Diltiazem CD (24hr) [Cardizem CD] 120 mg PO DAILY #30 cap.er.24h 10/16/17 [Rx] Allergies/Adverse Reactions: 3 Allergy/AdvReac Type Severity Reaction Status Date / Time clarithromycin [From Biaxin] AdvReac Nausea Verified 03/06/17 08:59 Procedures/tests Complete & Pending: Procedures Performed prior 72 hours Category Date Time Status EV echocardiogram Routine Y 10/14/17 23:46 Completed Date of admission: 10/13/17 20:45 Primary care physician: Joshua Bateman MD Consults: 10/13/17 21:48 Consult to Cardiology [CONS] Routine Comment: Consulting Provider: [facility] [place] Reason for Consult: New A Fib, ST-T change, Dr Gill called by ER Call Completed: Yes Discharging clinician: Dallin Church - Patient Status Disposition: Home, Self-Care Condition: Fair Functional capacity at discharge: independent ambulation Overall status at discharge: patient is progressing back to baseline - Discharge Instructions Follow Up With: Joshua Bateman MD [Primary Care Provider] - Ryan Casas MD [Partnered Physician] - - Diet and Activity Activity: increase activity as tolerated Diet: low fat, low cholesterol, low salt diet Interval History: Ms. Edgar is a 77 year old female with hx of CAD s/p CABG, PVD, HTN, Hiatal hernia, present to ER for nausea and vomiting started from today. Pt said vomiting is stomach content, no blood in it. Pt denies abd pain or diarrhea. She denies chest pain or SOB. In ER, EKG shows A Fib RVR. Pt has no hx of A Fib. She was given cardizem 15mg iv once plus cardizem drip. Her HR convert to sinus and nausea vomiting also resolved. Pt was started heparin drip and admitted for further management. Hospital course: Cardiology was consulted. Cardiology recommended extended release diltiazem 120 mg once a day. Patient tolerated dual benjamin melinda that is Cardizem/ metoprolol. Patient is on heparin drip. For long-term chronic anticoagulation it was noted that patient had a severe gastrointestinal bleed in a month of July 2016. Patient underwent upper and lower endoscopy at that point. It was found that patient has a Head's esophagus on EGD. Myself and patient's RN Ms Salcedoy was in patient's room this morning. We discussed with the patient at length regarding chronic anticoagulation. Risk of stroke in a background medical history of atrial fibrillation discussed. Also explained patient at length that there is a possibility of a again GI bleed in view of her chronic anticoagulation in a background history of Head's esophagus. Patient clearly told that she does not want any more bleeding and she declined chronic anticoagulation. Plan: Patient can go home today. Patient can follow-up with PCP in 1-2 weeks. patient can follow up with cardiology in 1-2 weeks. Patient cannot follow up with gastroenterology in 1-2 weeks. All questions answered. - Time Spent with Patient Total time spent providing and/or coordinating discharge services: - Constitutional Vitals: Temp Pulse Resp BP Pulse Ox 98.2 F 64 16 138/72 97 10/16/17 07:28 10/16/17 07:28 10/16/17 08:21 10/16/17 07:28 10/16/17 08:21 General appearance: Present: A&O X 3, no acute distress, answers questions appropriately - Head Head exam: Present: atraumatic, normocephalic - Eye Eye exam: Present: PERRL, conjuntiva pink, sclera anicteric Pupils: Present: PERRL - Neck Neck exam general surgery: Present: supple, trachea midline. Absent: lymphadenopathy - Respiratory Respiratory exam: Present: CTAB. Absent: accessory muscle use, rales, rhonchi, wheezes - Cardiovascular Cardiovascular exam: Present: RRR, +S1, +S2. Absent: diastolic murmur, gallop, rubs, systolic murmur - GI/Abdominal GI/Abdominal exam: Present: normal bowel sounds, soft, no peritoneal signs. Absent: distended, tenderness - Extremities Exam Extremities exam: Present: warm, radial pulses palpable and symmetrical. Absent : calf tenderness, cyanotic, pedal edema - Neurological Exam Neurological exam: Present: CN II-XII intact, oriented X3, no focal deficits. Absent: pronater drift, facial droop, speech deficit - Skin Skin exam: Present: dry, intact
[2017-10-16] MEDS: clonazePAM 0.5 MG TABLET PO SCH (11:52)
[2017-10-16] MEDS: Metoprolol 100 MG TABLET PO SCH (11:52)
[2017-10-16] MEDS: hydroCHLOROthiazide 25 MG TABLET PO SCH (11:53)
[2017-10-16] MEDS: Diltiazem CD (24hr) 120 MG CAPSULE PO SCH (11:53)
[2017-10-16] MEDS: Furosemide 20 MG TABLET PO SCH (11:53)
--- NOTE | 2017-10-17 18:31 | Electrocardiograph Report ---
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
--- NOTE | 2017-10-17 18:36 | Electrocardiograph Report ---
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
--- NOTE | 2017-10-17 19:45 | Electrocardiograph Report ---
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
== END 2017-10-16 13:45 | disposition home or self-care (01) ==
LOC: EMEROO 17:52 → 2NENU 17:52
PROVIDERS: ADMIT Internal Medicine; ATTEND Internal Medicine